=== PATIENT | male | born 1980 ===

== ENCOUNTER 2018-07-19 09:53 | Outpatient (CLI) | payer SELFPAY ==
[~2018-07-19] VITALS: Ht 167.6 cm; Wt 86.3 kg
[2018-07-19 10:11] VITALS: BP 138/89
[2018-07-20] MEDS ORDERED: ACHD5005 PO (12:29)
== END 2018-07-19 13:46 | disposition home or self-care (01) ==
LOC: PREOP 09:53
PROVIDERS: ATTEND Surgery
DX: Z01.818 Encounter for other preprocedural examination (principal)
CPT/HCPCS: 87081

== ENCOUNTER 2018-07-20 09:07 | Day surgery (SDC) | payer SELFPAY ==
[~2018-07-20] VITALS: Ht 167.6 cm; Wt 86.3 kg
[2018-07-20] MEDS ORDERED: ceFAZolin 2 GM IV Premixed 50 ML ONE (09:51)
[2018-07-20] MEDS ORDERED: LACTATED RINGERS 1,000 ML IV PRN ×2 (09:57→09:59)
[2018-07-20] MEDS ORDERED: ceFAZolin 2 GM IV Premixed 50 ML IV ONE (10:00)
--- NOTE | 2018-07-20 10:26 | Progress Note-Pre Operative ---
Pre-Operative Progress Note H&P Reviewed The H&P was reviewed, patient examined and no changes noted. Date Seen by Provider: Jul 20, 2018 Time Seen by Provider: 10:25 Date H&P Reviewed: Jul 20, 2018 Time H&P Reviewed: 10:25 Pre-Operative Diagnosis: LEFT HAND RIGHT KNEE MASSES ANANDA MATUTE DO Jul 20, 2018 10:25
[2018-07-20] MEDS ORDERED: BUPIVACAINE 0.5% 30 ML (SENSORCAINE) VIAL ONE (10:32)
[2018-07-20] MEDS ORDERED: LIDOCAINE 1% INJ 20 ML 20 ML VIAL ONE (10:32)
[2018-07-20] MEDS ORDERED: LIDOCAINE PF 2% 2 ML (XYLOCAINE) VIAL ONE (11:21)
[2018-07-20] MEDS ORDERED: DEXAMETHASONE 10 MG/ML (DECADRON) 1 ML VIAL ONE (11:21)
[2018-07-20] MEDS ORDERED: ONDANSETRON 4 MG/2 ML (SDV) Z0FRAN ONE (11:21)
[2018-07-20] MEDS ORDERED: MIDAZOLAM 2 MG/2 ML (VERSED) VIAL ONE (11:21)
[2018-07-20] MEDS ORDERED: SEVOFLURANE (ULTANE) 15 ML INHAL SOLN ONE (11:21)
[2018-07-20] MEDS ORDERED: proPOfol 200 MG/20 ML (DIPRIVAN) VIAL IV ONE (11:21)
[2018-07-20] MEDS ORDERED: fentaNYL INJECTION 100 MCG/2 ML AMP ONE (11:22)
[2018-07-20 11:25] VITALS: BP 145/74
--- NOTE | 2018-07-20 12:28 | Progress Note-Post Operative ---
Post-Operative Progess Note Surgeon (s)/Automat Watcher (s) Surgeon ANANDA MATUTE DO Automat Watcher: na Pre-Operative Diagnosis LEFT HAND RIGHT KNEE MASSES Post-Operative Diagnosis same Procedure & Operative Findings Date of Procedure 07/20/18 Procedure Performed/Findings excision left hand mass 2.6x2 cm and excision right knee mass 4x2cm Anesthesia Type gen Estimated Blood Loss Estimated blood loss (mL): min Specimens/Packing Specimens Removed left hand mass, right knee mass ANANDA MATUTE DO Jul 20, 2018 12:28
[2018-07-20] MEDS ORDERED: ACHD5005 PO (12:29)
--- NOTE | 2018-07-20 12:31 | Discharge Inst-Simple/Standard ---
Discharge Inst-Standard Discharge Medications New, Converted or Re-Newed RX: RX on Chart Patient Instructions/Follow Up Plan of Care/Instructions/FU: 2 weeks Gaytan Activity as Tolerated: Yes (keep incisions clean and dry) Discharge Diet: Regular Diet Other Inst to Patient Follow up Appt: Make appointment for 2 week. Instructions: No strenuous activity with left hand. May shower in 24 hours, no tub bath or soaking. Use incentive spirometer at home as directed. No Smoking Skin/Wound Care: May remove bandages in 24 hours, keep clean and dry. Symptoms to Report: Appetite Changes, Extremity Discoloration, Numbness/Tingling, Swelling Increased , Bleeding Excessive, Eyesight Changes, Pain Increased, Urine Color Change, Constipation(Persistent), Fever over 101 degree F, Pain/Pressure in chest, Urinating Difficulty, Cough Up/Vomit Blood, Heart Beat Irreg/Pounding, Pain/ Pressure in jaw, Vaginal Bleeding Increase, Cramps in feet or legs, Lightheadedness, Pain/Pressure in shoulder, Diarrhea(Persistent), Memory Changes Suddenly, Questions/Concerns, Weight gain consecutive days, Dizziness/ Fainting, Nausea/Vomiting, Shortness of Breath, Weight gain over 2 pounds If questions or concerns contact your physician Or seek help at emergency department. ANANDA GAYTAN DO Jul 20, 2018 12:31
[2018-07-20] MEDS ORDERED: MEPERIDINE (DEMEROL) INJ 50 MG/ML IVP ONE (12:45)
[2018-07-20] MEDS ORDERED: fentaNYL INJECTION 100 MCG/2 ML AMP IVP ONE (12:45)
[2018-07-20] MEDS ORDERED: HYDROmorphone 2 MG/ML VIAL (DILAUDID) IV ONE (12:45)
[2018-07-20] MEDS ORDERED: ONDANSETRON 4 MG/2 ML (SDV) Z0FRAN IVP PRN (12:45)
[2018-07-20 13:10] VITALS: BP 127/88
[2018-07-20 13:40] VITALS: BP 142/96
[2018-07-20 14:00] VITALS: BP 142/96
--- NOTE | 2018-07-20 14:15 | OPERATIVE REPORT ---
DATE OF SERVICE: 07/20/2018 PREOPERATIVE DIAGNOSIS: Left hand and right knee mass. POSTOPERATIVE DIAGNOSIS: Left hand and right knee mass. PROCEDURE: Excision of left hand 2.6 x 2 cm mass and right knee 4 x 2 cm mass. SURGEON: Ananda Gaytan DO. ANESTHESIA: General. ESTIMATED BLOOD LOSS: Minimal. COMPLICATIONS: None. INDICATIONS: The patient is a 37-year-old male with a mass on the left hand and a mass on the right knee. These have continued to increase in size and he would like to have these removed. He understands risks and benefits of procedure and wished to proceed with the procedure. Consent was signed and on the chart. DESCRIPTION OF PROCEDURE: The patient was taken to the operating suite. He was prepped and draped in sterile fashion. Surgical pause was performed. On the posterior left hand, an elliptical incision measuring 2.6 x 2 cm was made around the palpable mass. Cautery was used to dissect around it, removing the mass in its whole. The wound was irrigated and then the skin was closed using 3-0 Prolene in a simple interrupted fashion. The area was then washed and dried and sterile bandage was applied. Local anesthetic was infiltrated into the subcutaneous tissues previous to incision. The right knee was then attention placed on it. Local anesthetic was used to infiltrate around the right knee mass. An elliptical incision measuring 4 x 2 cm was made around the mass and skin and subcutaneous tissue were removed. Cautery was used to achieve hemostasis. The skin was then closed using 3-0 Prolene in a simple interrupted fashion and a vertical mattress fashion until the wound was closed. The area was then washed and dried, sterile bandage was applied. The patient tolerated procedure well without any complications and taken to recovery room in stable condition. Job ID: [id number] DocumentID: [id number] Dictated Date: 07/20/2018 13:48:54 Stick Inserter Date: 07/20/2018 14:14:31 Dictated By: ANANDA GAYTAN DO
--- NOTE | 2018-07-20 14:25 | Anesthesia-General Post-Op ---
General Patient Condition Mental Status/LOC: Same as Preop Cardiovascular: Satisfactory Nausea/Vomiting: Absent Respiratory: Satisfactory Pain: Controlled Complications: Absent Post Op Complications Complications None Follow Up Care/Instructions Patient Instructions None needed. Anesthesia/Patient Condition Patient Condition Patient is doing well, no complaints, stable vital signs, no apparent adverse anesthesia problems. No complications reported per nursing. GIGI WHEATLEY CRNA Jul 20, 2018 14:25
== END 2018-07-20 14:00 | disposition home or self-care (01) ==
LOC: SDC 09:07
PROVIDERS: ATTEND Surgery
DX: D36.12 Benign neoplasm of peripheral nerves and autonomic nervous system, upper limb, including shoulder (principal); D36.13 Benign neoplasm of peripheral nerves and autonomic nervous system of lower limb, including hip; E66.9 Obesity, unspecified; Z68.30 Body mass index [BMI] 30.0-30.9, adult
CPT/HCPCS: 88305; 88341; 88342

== ENCOUNTER 2019-08-02 13:41 | Emergency (ER) | payer OTHER ==
[~2019-08-02] VITALS: Ht 170.1 cm; Wt 89.0 kg
[~2019-08-02 13:41] MED LIST: ACHD5005 PO
[2019-08-02] MEDS ORDERED: LORazepam 0.5 MG (ATIVAN) TABLET PO STA (13:53)
[2019-08-02 13:59] LABS: BASOPHILS % (AUTO) 0 % (0-10); EOSINOPHILS # (AUTO) 0.1 10^3/uL (0.0-0.3); EOSINOPHILS % (AUTO) 2 % (0-10); HEMATOCRIT 42 % (40-54); HEMOGLOBIN 14.5 G/DL (13.3-17.7); LYMPHOCYTES % (AUTO) 25 % (12-44); MEAN CORPUSCULAR HEMOGLOBIN 29 PG (25-34); MEAN CORPUSCULAR HGB CONC 35 G/DL (32-36); MEAN CORPUSCULAR VOLUME 83 FL (80-99); MEAN PLATELET VOLUME 10.6 FL (7.4-10.4); MONOCYTES # (AUTO) 0.5 X 10^3 (0.0-1.0); MONOCYTES % (AUTO) 6 % (0-12); NEUTROPHILS # (AUTO) 5.4 X 10^3 (1.8-7.8); NEUTROPHILS % (AUTO) 68 % (42-75); PLATELET COUNT 147 10^3/uL (130-400); RED CELL DISTRIBUTION WIDTH 14.7 % (10.0-14.5); WHITE BLOOD COUNT 8.1 10^3/uL (4.3-11.0)
[2019-08-02] MEDS ORDERED: cloNIDine 0.2 MG (CATAPRES) TAB PO ONE (14:00)
--- NOTE | 2019-08-02 14:05 | ED General ---
General Chief Complaint: Cardiac/General Problems Stated Complaint: HIGH BP; HEADACHE Source of Information: Patient, Family Exam Limitations: Language Barrier History of Present Illness Date Seen by Provider: Aug 02, 2019 Time Seen by Provider: 14:02 Initial Comments This 38-year-old man presents with high blood pressure. The patient used a blood pressure cuff yesterday and noted that his blood pressure was elevated. The patient presented to [facility] today and found that his blood pressure was again elevated. The patient had a self-limited headache at the time of presentation [address] [place] [address] and until shortly prior to presentation emergency department here. Fortunately the patient has had no associated photophobia or stiff neck. At one point he complained of blurred vision but this also appears to resolve. Patient has no previously documented history of hypertension. Patient denies significant past medical history. He denies use of recreational drugs. Patient denies associated chest pain, shortness of breath, nausea, diaphoresis, or lateralizing or localizing neurologic complaints. Allergies and Home Medications Allergies Coded Allergies: morphine (Verified Allergy, Mild, RASH/HIVES, 07/19/18) Patient Home Medication List Home Medication List Reviewed: Yes Review of Systems Review of Systems Constitutional: No chills, No fever EENTM: blurred vision (self-limited) Respiratory: No cough, No short of breath Cardiovascular: No chest pain, No palpitations Gastrointestinal: No abdominal pain, No nausea, No vomiting Genitourinary: no symptoms reported Musculoskeletal: no symptoms reported Skin: no symptoms reported Psychiatric/Neurological: No Symptoms Reported Hematologic/Lymphatic: No Symptoms Reported Immunological/Allergic: no symptoms reported Past Khmrypo-Pfkjot-Mzzzbq Hx Past Med/Social Hx: Reviewed Nursing Past Med/Soc Hx Patient Social History Alcohol Use: Denies Use Recreational Drug Use: No Smoking Status: Never a Smoker Recent Hopitalizations: No Seasonal Allergies Seasonal Allergies: No Past Medical History Surgeries: No Respiratory: No Cardiac: No Neurological: No Reproductive Disorders: No Sexually Transmitted Disease: No HIV/AIDS: No Gastrointestinal: No Musculoskeletal: No Endocrine: No Loss of Vision: Denies Hearing Impairment: Denies Cancer: No Psychosocial: No Integumentary: No Blood Disorders: No Adverse Reaction/Blood Tranf: No (N/A) Physical Exam Vital Signs Vital Signs - First Documented 08/02/19 13:41 Temp 37.2 Pulse 126 Resp 18 B/P (MAP) 183/104 (130) Pulse Ox 97 Capillary Refill : Height, Weight, BMI Height: 5'6.00" Weight: 190lbs. 3.0oz. 86.319964gz; 30.7 BMI Method: General Appearance: No Apparent Distress, WD/WN HEENT: Normal ENT Inspection Neck: Normal Inspection Respiratory: Lungs Clear Cardiovascular: Regular Rate, Rhythm Gastrointestinal: Normal Bowel Sounds Neurologic/Psychiatric: Alert, Oriented x3, No Motor/Sensory Deficits, Normal Mood/Affect Skin: Normal Color, Warm/Dry Progress/Results/Core Measures Suspected Sepsis SIRS Temperature: Pulse: Respiratory Rate: Laboratory Tests 08/02/19 13:47: White Blood Count 8.1 Blood Pressure / Mean: Laboratory Tests 08/02/19 13:47: Creatinine 0.88, Platelet Count 147, Total Bilirubin 0.7 Results/Orders Lab Results Laboratory Tests Test 08/02/19 13:47 Range/Units White Blood Count 8.1 4.3-11.0 10^3/uL Red Blood Count 5.03 4.35-5.85 10^6/uL Hemoglobin 14.5 13.3-17.7 G/DL Hematocrit 42 40-54 % Mean Corpuscular Volume 83 80-99 FL Mean Corpuscular Hemoglobin 29 25-34 PG Mean Corpuscular Hemoglobin Concent 35 32-36 G/DL Red Cell Distribution Width 14.7 H 10.0-14.5 % Platelet Count 147 130-400 10^3/uL Mean Platelet Volume 10.6 H 7.4-10.4 FL Neutrophils (%) (Auto) 68 42-75 % Lymphocytes (%) (Auto) 25 12-44 % Monocytes (%) (Auto) 6 0-12 % Eosinophils (%) (Auto) 2 0-10 % Basophils (%) (Auto) 0 0-10 % Neutrophils # (Auto) 5.4 1.8-7.8 X 10^3 Lymphocytes # (Auto) 2.0 1.0-4.0 X 10^3 Monocytes # (Auto) 0.5 0.0-1.0 X 10^3 Eosinophils # (Auto) 0.1 0.0-0.3 10^3/uL Basophils # (Auto) 0.0 0.0-0.1 10^3/uL Sodium Level 133 L 135-145 MMOL/L Potassium Level 3.5 L 3.6-5.0 MMOL/L Chloride Level 99 98-107 MMOL/L Carbon Dioxide Level 21 21-32 MMOL/L Anion Gap 13 5-14 MMOL/L Blood Urea Nitrogen 11 7-18 MG/DL Creatinine 0.88 0.60-1.30 MG/DL Estimat Glomerular Filtration Rate > 60 BUN/Creatinine Ratio 13 Glucose Level 214 H 70-105 MG/DL Calcium Level 9.5 8.5-10.1 MG/DL Corrected Calcium 8.5-10.1 MG/DL Total Bilirubin 0.7 0.1-1.0 MG/DL Aspartate Amino Transf (AST/SGOT) 34 5-34 U/L Alanine Aminotransferase (ALT/SGPT) 74 H 0-55 U/L Alkaline Phosphatase 121 40-136 U/L Troponin I < 0.028 <0.028 NG/ML Total Protein 8.7 H 6.4-8.2 GM/DL Albumin 4.6 H 3.2-4.5 GM/DL My Orders Orders - ANNIE DAS MD Cbc With Automated Diff (08/02/19 13:53) Comprehensive Metabolic Panel (08/02/19 13:53) Chest 1 View, Ap/Pa Only (08/02/19 13:53) Ekg Tracing (08/02/19 13:53) Troponin I (08/02/19 13:53) Ua Culture If Indicated (08/02/19 13:53) Clonidine Tablet (Catapres Tablet) (08/02/19 14:00) Lorazepam Tablet (Ativan Tablet) (08/02/19 13:53) Medications Given in ED Current Medications Medications Dose Ordered Sig/Kristine Route Start Time Stop Time Status Last Admin Dose Admin Clonidine HCl 0.2 mg ONCE ONCE PO 08/02/19 14:00 08/02/19 14:01 DC 08/02/19 13:59 0.2 MG Vital Signs/I&O 08/02/19 13:41 Temp 37.2 Pulse 126 Resp 18 B/P (MAP) 183/104 (130) Pulse Ox 97 Capillary Refill : Progress Note : Time: 14:46 Progress Note Patient's evaluation in the emergency department demonstrated sinus tachycardia but no acute current of injury. The patient's laboratory evaluation was unremarkable. Treatment course the patient received 0.2 mg clonidine and ativan 1 mg p.o. The patient's blood pressure and tachycardia essentially spontaneously resolved with this treatment. At the time of discharge patient's diastolic was down to approximately 102 and the systolic pressure was probably within normal limits. Patient's tachycardia and abraded. I discussed findings with patient and his . He will follow up closely with the [facility] on Tuesday. I placed the patient on 0.2 mg of clonidine orally twice daily. I asked that he call or return to emergency department if any further problems or questions. Departure Impression Primary Impression: Elevated blood pressure reading Disposition: HOME, SELF-CARE Condition: Improved Departure-Patient Inst. Decision time for Depature: 14:49 Referrals: NO,LOCAL PHYSICIAN (PCP) Primary Care Physician [facility] Patient Instructions: High Blood Pressure (DC) Add. Discharge Instructions: Clonidine as prescribed. Close follow daily health on Tuesday. Return if any problems or questions. All discharge instructions reviewed with patient and/or family. Voiced understanding. Scripts Clonidine HCl (Clonidine HCl) 0.2 Mg Tablet 0.2 MG PO BID, #30 TAB Prov: ANNIE DAS MD 08/02/19 ANNIE DAS MD Aug 02, 2019 14:05
[2019-08-02 14:20] LABS: ALANINE AMINOTRANSFERASE 74 U/L (0-55); ALBUMIN 4.6 GM/DL (3.2-4.5); ALKALINE PHOSPHATASE 121 U/L (40-136); BILIRUBIN,TOTAL 0.7 MG/DL (0.1-1.0); BUN/CREATININE RATIO 13; CALCIUM 9.5 MG/DL (8.5-10.1); CARBON DIOXIDE 21 MMOL/L (21-32); CHLORIDE 99 MMOL/L (98-107); CREATININE SERUM 0.88 MG/DL (0.60-1.30); GFR ESTIMATED > 60; GLUCOSE 214 MG/DL (70-105); POTASSIUM 3.5 MMOL/L (3.6-5.0); SODIUM 133 MMOL/L (135-145); TOTAL PROTEIN 8.7 GM/DL (6.4-8.2)
[2019-08-02] MEDS ORDERED: CLON0.2T PO (14:51)
--- NOTE | 2019-08-02 15:19 | Diagnostic Imaging Report ---
INDICATION: Hypertension. Headache. COMPARISON: None. FINDINGS: Single frontal view of the chest demonstrates normal heart size and pulmonary vascularity. The lungs are well aerated and clear. No large pleural effusion or pneumothorax is seen. The visualized osseous structures show no acute abnormalities. IMPRESSION: 1. No acute cardiopulmonary process. Dictated by: Dictated on workstation # [id number]
[2019-08-02 15:35] VITALS: BP 133/89
--- NOTE | 2019-08-02 15:35 | NUR ---
[employer] LINE TO GO OVER DISCHARGE INSTRUCTION WITH RAGHAVENDRA DAS IN ROOM ALSO VOICED UNDERSTANDING OF INSTRUCTIONS.
== END 2019-08-02 14:48 | disposition home or self-care (01) ==
LOC: EDUNIT# 13:41 → ER 13:42
DX: R03.0 Elevated blood-pressure reading, without diagnosis of hypertension (principal); Z88.5 Allergy status to narcotic agent
CPT/HCPCS: 36415; 71045; 80053; 84484; 85025